=== PATIENT | female | born 1975 | race Asian ===

== ENCOUNTER 2023-05-02 09:35 | Outpatient (CLI) | payer BC | END 2023-05-02 09:36 | disposition home or self-care (01) | LOC: CSHMAMMO 09:35 | PROVIDERS: ATTEND Family Medicine | DX: Z12.31 Encounter for screening mammogram for malignant neoplasm of breast (principal) | CPT/HCPCS: 77063; 77067 ==

== ENCOUNTER 2024-05-19 12:58 | Outpatient (CLI) | payer BC | END 2024-05-19 12:59 | disposition home or self-care (01) | LOC: CSHMAMMO 12:58 | PROVIDERS: ATTEND Family Medicine | DX: Z12.31 Encounter for screening mammogram for malignant neoplasm of breast (principal); Z91.89 Other specified personal risk factors, not elsewhere classified | CPT/HCPCS: 77063; 77067 ==